=== PATIENT | female | born 1960 | race Caucasian/White ===

== ENCOUNTER 2023-06-25 07:52 | Outpatient (OUT) | payer BC, SELFPAY ==
--- NOTE | 2023-06-25 07:55 | XR_ITS ---
[place] [id number] Patient Name: BERT MISHRA MRN: [id number] date: 1960 Sex: F Assigned Patient Location: [facility] Current Patient Location: [facility] Accession/Order Number: [id number] Exam Date: 06/25/2023 08:00 Report Date: 06/25/2023 08:30 At the request of: MORRO DEGROOT Procedure: XR knee RT 4V PROCEDURE: XR knee RT 4V COMPARISON: None HISTORY: Right Knee Pain M25.581 FINDINGS: BONES:No acute fracture or dislocation. Mild degenerative changes with marginal osteophyte formation. Likely subchondral lytic changes of the patella. SOFT TISSUES:Soft tissue mass in the popliteal fossa measuring 3.8 x 6.9 cm on lateral projection corresponding to a palpable mass demarcated with the BB marker EFFUSION:None visible. OTHER: Negative. XR/XR knee RT 4V IMPRESSION: Popliteal fossa mass, follow-up evaluation is recommended Electronically authenticated by: BRITTNEE BEARD Date: 06/25/2023 08:30
== END 2023-06-25 07:53 | disposition home or self-care (01) ==
LOC: RAD 07:53
PROVIDERS: Visit Provider Orthopaedic Surgery
DX: M25.561 Pain in right knee (principal)
CPT/HCPCS: 73564

== ENCOUNTER 2024-01-15 12:53 | Outpatient (OUT) | payer BC, SELFPAY ==
--- NOTE | 2024-01-15 | MM_ITS ---
Patient Name: BERT MISHRA MR#: [id number] : 1960 Exam Date: 01/15/2024 Ordering Doctor: DR. PALMIRA NORMAN . RADIOLOGY REPORT PROCEDURE: MM TOMOSYNTHESIS SCREENING BI COMPARISON: MG MAMM SCREEN 3D [place] CAD, 01/12/2023. MG MAMM SCREEN 3D [place] CAD, 01/04/2022. INDICATIONS: SCREENING Calculator Name NCI Breast Cancer Risk Assessment Tool 5 Year Breast Cancer Risk 2.10% Lifetime Breast Cancer Risk 9.40% Personal Breast Cancer No Personal Ovarian Cancer No Treatments None Family Cancers None LOCATION: [facility] [place] BREAST COMPOSITION: Scattered areas fibroglandular density. FINDINGS: DIAGNOSTIC CATEGORY 2--BENIGN FINDING: RIGHT BREAST: No significant suspicious finding. Scattered benign-appearing lymph nodes are present. No significant change has occurred. LEFT BREAST: No significant suspicious finding. Scattered benign-appearing lymph nodes are present. No significant change has occurred. RECOMMENDATIONS: ROUTINE MAMMOGRAM AND CLINICAL EVALUATION IN 12 MONTHS. PLEASE NOTE: A NORMAL MAMMOGRAM DOES NOT EXCLUDE THE POSSIBILITY OF BREAST CANCER. A CLINICALLY SUSPICIOUS PALPABLE LUMP SHOULD BE BIOPSIED. Dictated by: Elliot Galarza M.D. on 01/16/2024 at 14:58 Approved by: Elliot Galarza M.D. on 01/16/2024 at 15:02
== END 2024-01-15 12:54 | disposition home or self-care (01) ==
LOC: MAMMO 12:53
PROVIDERS: PCP Family Medicine; Visit Provider Family Medicine
DX: Z12.31 Encounter for screening mammogram for malignant neoplasm of breast (principal)
CPT/HCPCS: 77063; 77067

== ENCOUNTER 2024-02-11 07:53 | Outpatient (OUT) | payer BC, SELFPAY ==
[2024-02-11 08:31] LABS: Basophils Absolute Auto 0.1 10^3/uL (0.0-0.1); Eosinophils Absolute Auto 0.1 10^3/uL (0.0-0.7); Eosinophils Percent Auto 1.8 % (0.9-7.0); Immature Granulocytes Abs Auto 0.01 10^3/uL (0.00-0.03); Immature Granulocytes Pct Auto 0.2 % (0.0-0.5); Lymphocytes Absolute Auto 1.6 10^3/uL (1.2-3.8); Lymphocytes Percent Auto 25.4 % (20.5-60.0); Mean Corpuscular HGB Conc 33.3 g/dL (29.9-35.2); Mean Corpuscular Hemoglobin 30.1 pg (26.7-34.0); Mean Corpuscular Volume 90.2 fL (81.0-99.0); Mean Platelet Volume 8.9 fL (9.5-13.5); Monocytes Absolute Auto 0.4 10^3/uL (0.3-0.8); Monocytes Percent Auto 7.2 % (1.7-12.0); Neutrophils Percent Auto 64.4 % (43.0-75.0); Platelet Count 347 10^3/uL (150-450); Red Blood Count 3.99 10^6/uL (4.20-5.40); Red Cell Distribution Width 12.3 % (11.0-15.0); White Blood Count 6.1 10^3/uL (4.0-11.0)
[2024-02-11 12:11] LABS: Estimated Average Glucose 108 mg/dL; Glycohemoglobin A1C 5.4 % (4.5-6.2)
[2024-02-11 13:19] LABS: Anion Gap 12.4; BUN Creatinine Ratio 25.9; Bilirubin Total 0.7 mg/dL (0.2-1.0); Calcium 9.3 mg/dL (8.5-10.1); Carbon Dioxide 29.3 mmol/L (21.0-32.0); Chloride 102 mmol/L (98-107); Estimated GFR (African America >60 (>=60); Estimated GFR (Non-African Ame >60 (>=60); Glucose 89 mg/dL (74-106); Potassium 3.7 mmol/L (3.5-5.1); Sodium 140 mmol/L (136-145)
[2024-02-11 13:20] LABS: Alanine Aminotransferase 25 U/L (14-59); Albumin Level 3.8 g/dL (3.4-5.0); Alkaline Phosphatase 110 U/L (46-116); Aspartate Amino Transferase 22 U/L (15-37); Cholesterol 171 mg/dL (<=200); Globulin 3.8 g/dL; HDL Cholesterol 75 mg/dL (40-60); Total Protein 7.6 g/dL (6.4-8.2); Triglycerides 22 mg/dL (<=150); VLDL CHOLESTEROL 4.4 mg/dL
[2024-02-11 13:21] LABS: Thyroid Stimulating Hormone 0.961 uIU/mL (0.358-3.740)
[2024-02-11 13:48] LABS: Chol HDL Ratio 2.3
== END 2024-02-11 07:54 | disposition home or self-care (01) ==
PROVIDERS: PCP Family Medicine; Visit Provider Nurse Practitioner
DX: Z00.00 Encounter for general adult medical examination without abnormal findings (principal)
CPT/HCPCS: 36415; 80053; 80061; 83036; 84443; 85025